=== PATIENT | female | born 1980 | race Two or more races ===

== ENCOUNTER 2022-10-19 15:06 | Emergency (ER) | payer OTHER ==
[~2022-10-19] VITALS: Ht 167.6 cm; Wt 123.0 kg
[2022-10-19 15:09] VITALS: O2SAT 95
[2022-10-19] MEDS ORDERED: ACETAMINOPHEN 325MG TABLET PO STA (15:34)
[2022-10-19 16:12] LABS: BASOPHILS % 1.1 % (0.0-2.0); HEMOGLOBIN. 11.7 g/dL (12.0-16.0); LYMPHOCYTES % 19.6 % (20.0-50.0); MEAN CORPUSCULAR HEMOGLOBIN 32.3 pg (28.0-32.0); MEAN CORPUSCULAR VOLUME 96.4 fL (81.0-99.0); MEAN PLATELET VOLUME 9.8 fl (7.4-10.4); MONOCYTES % 5.6 % (2.0-8.0); NEUTROPHILS % 72.7 % (40.0-76.0); PLATELET 249 x1000/uL (130-400); RED BLOOD CELL COUNT 3.63 mill/uL (4.2-5.4); RED CELL DISTRIBUTION WIDTH 14.1 % (11.6-14.6)
[2022-10-19 16:18] VITALS: BP 166/89; PULSE 88; RESP 18; TEMP 98.8
[2022-10-19 16:37] LABS: CHLORIDE 113 mEq/L (98-107)
== END 2022-10-19 19:24 | disposition home or self-care (01) ==
LOC: ER 15:06
DX: R07.89 Other chest pain (principal); I10 Essential (primary) hypertension; R94.31 Abnormal electrocardiogram [ECG] [EKG]; Z98.890 Other specified postprocedural states
CPT/HCPCS: 36415; 71045; 80053; 83880; 84484; 85025; 93005; 99285